=== PATIENT | female | born 1955 | race Caucasian/White ===

== ENCOUNTER 2016-12-29 00:31 | Emergency (ER) | payer SELFPAY ==
[2016-12-29 00:37] VITALS: BP 112/59
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
[2016-12-29 01:27] LABS: CHLORIDE,CL 104 mmol/L (98-107); SODIUM,NA 140 mmol/L (136-145)
[2016-12-29] MEDS ORDERED: Take Home: Acetaminophen/HYDROcodone 325-10 MG, 5 Tab Pack PO ONE (01:39)
== END 2016-12-29 01:54 | disposition home or self-care (01) ==
LOC: VM.ED 00:31
DX: M79.7 Fibromyalgia (principal); I10 Essential (primary) hypertension; J45.909 Unspecified asthma, uncomplicated; Z88.1 Allergy status to other antibiotic agents; Z91.030 Bee allergy status; Z88.0 Allergy status to penicillin; Z88.5 Allergy status to narcotic agent
CPT/HCPCS: 36415; 80048; 83735; 86140; 99283; A9270

== ENCOUNTER 2018-10-23 17:06 | Emergency (ER) | payer MEDICARE, BC ==
[2018-10-23] MEDS ORDERED: Sodium Chloride 0.9% 10 ML Syringe FLUSH PRN (17:13)
[2018-10-23] MEDS ORDERED: Sodium Chloride 0.9% 1,000 ML IV ONE (17:13)
[2018-10-23] MEDS ORDERED: diphenhydrAMINE 50 MG/ML SDV IVPUSH ONE (17:14)
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
[2018-10-23] MEDS ORDERED: methylPREDNISolone Sodium Succinate 125 MG/2 ML SDV IVPUSH ONE (17:23)
[2018-10-23] MEDS ORDERED: Famotidine 20 MG/2 ML SDV IVPUSH ONE (17:23)
[2018-10-23] MEDS ORDERED: EPINEPHrine 1 MG/1 ML Amp SUBCUT ONE (18:19)
[2018-10-23] MEDS ORDERED: Ondansetron 4 MG/2 ML SDV IVPUSH ONE (18:19)
[2018-10-23] MEDS ORDERED: Sodium Chloride 0.9% 1,000 ML IV SCH (18:30)
[2018-10-23 18:47] VITALS: BP 140/72; PULSE 60
== END 2018-10-23 20:31 | disposition home or self-care (01) ==
LOC: VM.ED 17:06
DX: M79.89 Other specified soft tissue disorders (principal); T45.4X5A Adverse effect of iron and its compounds, initial encounter; J45.909 Unspecified asthma, uncomplicated; F41.9 Anxiety disorder, unspecified; I10 Essential (primary) hypertension; Z79.899 Other long term (current) drug therapy; Z88.0 Allergy status to penicillin; Z88.1 Allergy status to other antibiotic agents; Z88.6 Allergy status to analgesic agent; D64.9 Anemia, unspecified; D50.9 Iron deficiency anemia, unspecified
CPT/HCPCS: 93005; 96361; 96365; 96366; 96372; 96374; 96375; 99284; A9270; J1200; J1756; J2405; J2930; J3490; J7030; J7050; J0171

== ENCOUNTER 2018-11-11 23:01 | Emergency (ER) | payer MEDICARE, BC ==
[2018-11-11] MEDS ORDERED: Acetaminophen 500 MG Tab PO ONE (23:38)
[2018-11-11] MEDS ORDERED: cefTRIAXone 2 GM Vial IVPUSH ONE (23:40)
[2018-11-11] MEDS ORDERED: Sodium Chloride 0.9% 1,000 ML IV SCH (23:45)
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
[2018-11-12 00:11] LABS: CHLORIDE,CL 101 mmol/L (98-107); SODIUM,NA 139 mmol/L (136-145)
[2018-11-12 00:15] LABS: ANION GAP 15.4 mmol/L (10-20)
[2018-11-12 00:24] VITALS: BP 114/59; PULSE 96
--- NOTE | 2018-11-12 08:00 | CR ---
[id number] RAD/RAD Chest PA or AP 1V EXAM: RAD Chest PA or AP 1V INDICATION: SHORTNESS OF BREATH COMPARISON: None. DISCUSSION: Cardiomediastinal silhouette is normal in size and contour. No infiltrate, effusion, pneumothorax, or edema. IMPRESSION: Negative examination of the chest. Doug Gaona MD 11/12/18 0757 Thank you for allowing us to participate in the care of your patient.
== END 2018-11-12 00:42 | disposition home or self-care (01) ==
LOC: VM.ED 23:01
DX: N12 Tubulo-interstitial nephritis, not specified as acute or chronic (principal); I10 Essential (primary) hypertension; J45.909 Unspecified asthma, uncomplicated; F41.9 Anxiety disorder, unspecified; Z91.030 Bee allergy status; Z88.5 Allergy status to narcotic agent; Z88.1 Allergy status to other antibiotic agents; Z88.0 Allergy status to penicillin; Z79.899 Other long term (current) drug therapy; R06.02 Shortness of breath
CPT/HCPCS: 36415; 71045; 80053; 81001; 83605; 83735; 83880; 84484; 85025; 85610; 86140; 87040; 93005; 93010; 96361; 96374; 99284; 99285; A9270; J0696; J7030

== ENCOUNTER 2021-03-25 08:19 | Emergency (ER) | payer MEDICARE, BC ==
[2021-03-25 09:00] VITALS: BP 152/114; PULSE 67
[2021-03-25] MEDS ORDERED: Aspirin 81 MG Tab.Chew PO ONE (09:01)
[2021-03-25 09:20] LABS: CHLORIDE,CL 103 mmol/L (98-107); SODIUM,NA 139 mmol/L (136-145)
[2021-03-25 09:21] LABS: ANION GAP 13.6 mmol/L (5-15)
--- NOTE | 2021-03-25 09:21 | CR ---
[id number] RAD/RAD Chest PA or AP 1V EXAM: RAD Chest PA or AP 1V INDICATION: CHEST PAIN. COMPARISON: November 11, 2018. DISCUSSION: Cardiomediastinal silhouette is normal in size and contour. No infiltrate, effusion, pneumothorax, or edema. Surgical clips overlie the GE junction. IMPRESSION: No acute cardiopulmonary abnormality. Jass Lancaster DO 03/25/21 0920 Thank you for allowing us to participate in the care of your patient.
[2021-03-25] MEDS ORDERED: Morphine 4 MG/ML Syringe IVPUSH ONE (09:31)
[2021-03-25] MEDS ORDERED: Sodium Chloride 0.9% 1,000 ML IV SCH (10:00)
[2021-03-25] MEDS ORDERED: Iopamidol 612 MG/ML 100 ML Bottle IVPUSH ONE (10:06)
--- NOTE | 2021-03-25 10:37 | CT ---
[id number] CT/CT Chest W IV EXAM: CT Chest W IV CLINICAL DATA: CHEST/BACK PAIN. COMPARISON: None. FINDINGS: LUNGS: 4 mm noncalcified pulmonary nodule right lower lobe (series 2 image 47). No airspace consolidation. No pneumothorax or pleural effusion. HEART AND GREAT VESSELS: Aortic valvular calcifications. Coronary artery disease. Atherosclerotic calcifications of the aorta. MEDIASTINUM AND LYMPHATICS: No mediastinal or hilar lymphadenopathy. UPPER ABDOMINAL ORGANS: Postsurgical changes of the stomach. BONES: Scattered changes of spondylosis in the spine. No fracture or osseous lesion. IMPRESSION: 1. No evidence of active pneumonia. 2. 4 mm noncalcified pulmonary nodule within the right lower lobe. Follow-up chest CT in 6 months without contrast is recommended. Jass Lancaster DO 03/25/21 1036 Thank you for allowing us to participate in the care of your patient.
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
== END 2021-03-25 11:06 | disposition home or self-care (01) ==
LOC: VM.ED 08:19
DX: R07.89 Other chest pain (principal); I10 Essential (primary) hypertension; Z91.030 Bee allergy status; Z88.5 Allergy status to narcotic agent; Z88.0 Allergy status to penicillin
CPT/HCPCS: 71045; 71260; 80053; 83735; 84100; 84443; 84484; 85025; 85379; 85610; 85730; 86140; 93005; 93010; 99285; 99285-25; A9270-GY; Q9967

== ENCOUNTER 2021-05-14 09:13 | Emergency (ER) | payer MEDICARE, BC ==
[2021-05-14] MEDS ORDERED: Ketorolac 30 MG/ML SDV IM ONE (10:35)
[2021-05-14] MEDS ORDERED: Orphenadrine 60 MG/2 ML Inj IM ONE (10:35)
[2021-05-14 12:16] VITALS: BP 130/64; PULSE 63
== END 2021-05-14 10:55 | disposition home or self-care (01) ==
LOC: VM.ED 09:13
DX: M54.50 Low back pain, unspecified (principal); M25.551 Pain in right hip; I10 Essential (primary) hypertension; J45.909 Unspecified asthma, uncomplicated; Z91.030 Bee allergy status; Z88.5 Allergy status to narcotic agent; Z88.1 Allergy status to other antibiotic agents; Z88.0 Allergy status to penicillin; Z79.899 Other long term (current) drug therapy
CPT/HCPCS: 72100; 96372; 99283-25; 99284; J1885; J2360

== ENCOUNTER 2021-10-18 09:26 | Observation (INO) | payer MEDICARE, BC ==
[2021-10-18] MEDS ORDERED: Acetaminophen 325 MG Tab PO ONE (09:33)
[2021-10-18] MEDS ORDERED: cefTRIAXone 2 GM Vial IVPUSH ONE (09:33)
[2021-10-18] MEDS ORDERED: Sodium Chloride 0.9% 1,000 ML IV ONE (09:33)
[2021-10-18 10:23] LABS: CHLORIDE,CL 98 mmol/L (98-107); SODIUM,NA 136 mmol/L (136-145)
[2021-10-18 10:31] LABS: CORONAVIRUS COVID-19 NAA NEGATIVE (NEGATIVE)
[2021-10-18 10:43] LABS: ANION GAP 14.4 mmol/L (5-15); ESTIMATED GFR 49 mL/min (>=60)
[2021-10-18] MEDS ORDERED: Iopamidol 612 MG/ML 100 ML Bottle IVPUSH ONE (11:19)
[2021-10-18] MEDS ORDERED: Ibuprofen 200 MG Tab PO ONE (12:17)
[2021-10-18] MEDS ORDERED: Ibuprofen 200 MG Tab PO PRN (13:34)
[2021-10-18] MEDS ORDERED: Ondansetron 4 MG/2 ML SDV IV PRN (13:34)
[2021-10-18] MEDS ORDERED: Ondansetron 4 MG Tab.DIS PO PRN (13:34)
[2021-10-18] MEDS ORDERED: Diazepam 5 MG Tab PO PRN (13:39)
[2021-10-18] MEDS ORDERED: Zolpidem 5 MG Tab PO PRN (14:03)
[2021-10-18] MEDS: Acetaminophen 325 MG Tab PO PRN ×2 (17:25→21:49)
[2021-10-18] MEDS: tiZANidine 4 MG Tab PO PRN (17:26)
[2021-10-19] MEDS: tiZANidine 4 MG Tab PO PRN (03:37)
[2021-10-19 07:06] LABS: ANION GAP 12.3 mmol/L (5-15)
[2021-10-19 08:14] VITALS: BP 107/59; PULSE 64
[2021-10-19] MEDS ORDERED: Cholecalciferol (Vitamin D3) 25 MCG Tab PO SCH (09:00)
[2021-10-19] MEDS ORDERED: amLODIPine 10 MG Tab PO SCH (09:00)
[2021-10-19] MEDS ORDERED: cefTRIAXone 1 GM Vial IVPUSH SCH (09:00)
[2021-10-19] MEDS ORDERED: Furosemide 20 MG Tab PO SCH (09:00)
== END 2021-10-19 10:45 | disposition home or self-care (01) ==
LOC: VM.ED 09:26 → VM.MS 12:34
PROVIDERS: ADMIT Physician Assistant Medical; ATTEND Physician Assistant Medical
DX: K52.9 Noninfective gastroenteritis and colitis, unspecified (principal); N30.00 Acute cystitis without hematuria; I10 Essential (primary) hypertension; M81.0 Age-related osteoporosis without current pathological fracture; M79.7 Fibromyalgia; F41.9 Anxiety disorder, unspecified; E55.9 Vitamin D deficiency, unspecified; E53.8 Deficiency of other specified B group vitamins; Z20.822 Contact with and (suspected) exposure to COVID-19; Z98.890 Other specified postprocedural states; Z90.49 Acquired absence of other specified parts of digestive tract; Z88.5 Allergy status to narcotic agent; Z88.0 Allergy status to penicillin; Z88.8 Allergy status to other drugs, medicaments and biological substances; Z79.899 Other long term (current) drug therapy; Z91.030 Bee allergy status; Z87.891 Personal history of nicotine dependence
CPT/HCPCS: 0240U; 36415; 71045; 74177; 80048; 80053; 81001; 83605; 83690; 84145; 84484; 85025; 86140; 87040; 87086; 96361; 96374; 96376; 99285-25; A9270-GY; G0378; J0696; J7030; Q9967

== ENCOUNTER 2021-12-03 15:11 | Emergency (ER) | payer MEDICARE, BC ==
[2021-12-03 19:27] VITALS: BP 97/43; PULSE 71
== END 2021-12-03 16:40 | disposition home or self-care (01) ==
LOC: VM.ED 15:11
DX: G89.18 Other acute postprocedural pain (principal); I10 Essential (primary) hypertension; Z91.030 Bee allergy status; Z88.5 Allergy status to narcotic agent; Z88.6 Allergy status to analgesic agent; Z88.1 Allergy status to other antibiotic agents; Z88.0 Allergy status to penicillin; Z79.899 Other long term (current) drug therapy; Z90.49 Acquired absence of other specified parts of digestive tract; Z90.710 Acquired absence of both cervix and uterus
CPT/HCPCS: 99283; 99284

== ENCOUNTER 2022-02-07 03:10 | Emergency (ER) | payer MEDICARE, BC ==
[2022-02-07] MEDS ORDERED: Ondansetron 4 MG/2 ML SDV IVPUSH ONE (03:26)
[2022-02-07] MEDS ORDERED: HYDROmorphone 1 MG/ML Syringe IVPUSH ONE ×3 (03:26→09:30)
[2022-02-07 03:55] LABS: ANION GAP 13.4 mmol/L (5-15); CHLORIDE,CL 100 mmol/L (98-107); ESTIMATED GFR 41 mL/min (>=60); SODIUM,NA 138 mmol/L (136-145)
[2022-02-07] MEDS ORDERED: Iopamidol 612 MG/ML 100 ML Bottle IVPUSH ONE (04:29)
[2022-02-07] MEDS ORDERED: cefTRIAXone 1 GM Vial IVPUSH ONE (07:26)
[2022-02-07] MEDS ORDERED: Sodium Chloride 0.9% 1,000 ML IV SCH (09:00)
[2022-02-07 09:54] VITALS: BP 161/57; PULSE 62
== END 2022-02-07 09:54 | disposition short-term general hospital (02) ==
LOC: SUPCPDRO 03:10 → VM.ED 03:10
DX: K56.699 Other intestinal obstruction unspecified as to partial versus complete obstruction (principal); N39.0 Urinary tract infection, site not specified; I10 Essential (primary) hypertension; Z88.5 Allergy status to narcotic agent; Z88.6 Allergy status to analgesic agent; Z88.1 Allergy status to other antibiotic agents; Z91.030 Bee allergy status; Z88.0 Allergy status to penicillin; Z79.899 Other long term (current) drug therapy; Z90.49 Acquired absence of other specified parts of digestive tract; Z90.710 Acquired absence of both cervix and uterus
CPT/HCPCS: 74177; 80053; 81001; 85025; 87086; 87088; 87186; 94760; 96361; 96374; 96375; 96376; 99284; 99285; J0696; J1170; J2405; J7030; Q9967

== ENCOUNTER 2022-06-18 12:33 | Emergency (ER) | payer MEDICARE, BC ==
[2022-06-18] MEDS ORDERED: predniSONE 1 MG Tab PO ONE (12:57)
[2022-06-18 13:14] VITALS: BP 144/47; PULSE 69
[2022-06-18] MEDS ORDERED: predniSONE 20 MG Tab ONE (14:00)
== END 2022-06-18 14:01 | disposition home or self-care (01) ==
LOC: VM.ED 12:33
DX: M54.10 Radiculopathy, site unspecified (principal); I10 Essential (primary) hypertension; E03.9 Hypothyroidism, unspecified; Z91.030 Bee allergy status; Z88.5 Allergy status to narcotic agent; Z88.1 Allergy status to other antibiotic agents; Z88.0 Allergy status to penicillin; Z79.899 Other long term (current) drug therapy; Z79.01 Long term (current) use of anticoagulants
CPT/HCPCS: 99283; J7512

== ENCOUNTER 2023-07-12 06:43 | Emergency (ER) | payer MEDICARE, BC ==
[2023-07-12 08:21] VITALS: BP 120/50; PULSE 50
== END 2023-07-12 07:30 | disposition home or self-care (01) ==
LOC: VM.ED 06:43
DX: L60.0 Ingrowing nail (principal); L03.032 Cellulitis of left toe; I10 Essential (primary) hypertension; Z91.030 Bee allergy status; Z88.5 Allergy status to narcotic agent; Z88.6 Allergy status to analgesic agent; Z88.0 Allergy status to penicillin; Z88.1 Allergy status to other antibiotic agents; Z79.899 Other long term (current) drug therapy; Z79.01 Long term (current) use of anticoagulants; Z86.19 Personal history of other infectious and parasitic diseases; Z90.49 Acquired absence of other specified parts of digestive tract
CPT/HCPCS: 99283

== ENCOUNTER 2025-01-01 04:15 | Emergency (ER) | payer MEDICARE, BC ==
[2025-01-01] MEDS: Tetracaine HCl/PF 0.5% 4 ML Bottle EYELF ONE (04:37)
[2025-01-01] MEDS: Fluorescein 1 MG Ophth Strip EYELF ONE (04:38)
[2025-01-01 04:47] VITALS: BP 124/57; PULSE 53
[2025-01-01] MEDS: Take Home: Gentamicin 0.3% Ophth Soln 5 ML, 1 Bottle Pack EYELF ONE (04:56)
== END 2025-01-01 05:05 | disposition home or self-care (01) ==
LOC: VM.ED 04:15
DX: S05.02XA Injury of conjunctiva and corneal abrasion without foreign body, left eye, initial encounter (principal); I10 Essential (primary) hypertension; E03.9 Hypothyroidism, unspecified; Z79.899 Other long term (current) drug therapy; Z79.01 Long term (current) use of anticoagulants; Z88.8 Allergy status to other drugs, medicaments and biological substances; Z88.0 Allergy status to penicillin; Z88.5 Allergy status to narcotic agent; Z88.1 Allergy status to other antibiotic agents; Z90.49 Acquired absence of other specified parts of digestive tract; Z90.710 Acquired absence of both cervix and uterus; X58.XXXA Exposure to other specified factors, initial encounter
CPT/HCPCS: 99283; A9270; J3490

== ENCOUNTER 2025-02-14 12:31 | Emergency (ER) | payer MEDICARE, BC ==
[2025-02-14 12:59] LABS: BASOPHILS ABSOLUTE AUTO 0.0 x10^3/uL (0.0-0.2); BASOPHILS PERCENT AUTO 0.1 % (0.2-1.2); EOSINOPHILS ABSOLUTE AUTO 0.2 x10^3/uL (0.0-0.5); EOSINOPHILS PERCENT AUTO 2.8 % (0.0-4.0); IMMATURE GRAN ABSOLUTE AUTO 0.02 x10^3/uL (0.00-0.07); IMMATURE GRAN PERCENT AUTO 0.30 % (0.00-0.43); LYMPHOCYTES ABSOLUTE AUTO 2.0 x10^3/uL (1.0-4.8); LYMPHOCYTES PERCENT AUTO 27.3 % (25.0-50.0); MONOCYTES ABSOLUTE AUTO 0.5 x10^3/uL (0.0-0.8); MONOCYTES PERCENT AUTO 6.7 % (2.0-11.0); NEUTROPHILS ABSOLUTE AUTO 4.5 x10^3/uL (1.8-7.7); NEUTROPHILS PERCENT AUTO 62.8 % (50.0-80.0); PLATELET COUNT,PLT 180 x10^3/uL (130-400); RED BLOOD CELL COUNT 3.72 x10^6/uL (4.00-5.50); WHITE BLOOD CELL COUNT,WBC 7.2 x10^3/uL (4.0-10.0)
[2025-02-14 13:13] LABS: A/G RATIO 1.00; ALANINE AMINOTRANSFERASE,ALT 30 U/L (14-59); ASPARTATE AMNIOTRANSFERASE,AST 97 U/L (15-37); BILIRUBIN TOTAL 0.7 mg/dL (0.2-1.0); BLOOD UREA NITROGEN,BUN 36 mg/dL (7-18); CARBON DIOXIDE,CO2 25 mmol/L (21-32); CHLORIDE,CL 98 mmol/L (98-107); CREATININE 1.9 mg/dL (0.55-1.02); GLUCOSE RANDOM 106 mg/dL (70-99); POTASSIUM,K 3.0 mmol/L (3.5-5.1); PROTEIN TOTAL,TP 7.2 g/dL (6.4-8.2); SODIUM,NA 137 mmol/L (136-145)
[2025-02-14 13:16] LABS: ESTIMATED GFR 28 mL/min (>=60)
[2025-02-14] MEDS ORDERED: Potassium Chloride 10 MEQ Tab.ER PO ONE (13:31)
[2025-02-14] MEDS: Potassium Bicarbonate/Cit Ac 10 MEQ Effervescent Tab PO ONE (13:51)
[2025-02-14 16:07] VITALS: BP 124/74; PULSE 55
== END 2025-02-14 14:46 | disposition home or self-care (01) ==
LOC: VM.ED 12:31
DX: R07.9 Chest pain, unspecified (principal); N18.9 Chronic kidney disease, unspecified
CPT/HCPCS: 71045; 80053; 84484; 85025; 93005; 93010; 96360; 99284; 99285-25; A9270-GY; J7030